=== PATIENT | male | born 1995 | race African-American/Black ===

== ENCOUNTER 2018-09-04 21:11 | Emergency (ER) | payer BC ==
[2018-09-04] MEDS: KETOROLAC 30 MG INJ IM (23:20)
[2018-09-04] MEDS: ONDANSETRON (ODT) 4 MG TAB ODT (23:21)
== END 2018-09-05 00:23 | disposition home or self-care (01) ==
LOC: FTE 09-05 00:23
DX: R51 Headache (principal); F17.210 Nicotine dependence, cigarettes, uncomplicated
CPT/HCPCS: 96372; 99284-25